=== PATIENT | female | born 1970 | race Caucasian/White ===

== ENCOUNTER 2021-12-09 00:12 | Day surgery (SDC) | payer BC, SELFPAY ==
--- NOTE | 2021-12-02 13:54 | PC.NURSE ---
Report to the Outpatient Waiting Room, entrance under the green pavilion located off [facility], at time 0600 on date 12/09/21. OR Time: 0730. - You and your visitor will be asked a series of questions to screen for COVID 19 for your protection. - Only one visitor is allowed at this time. - The patient visitor is requested to leave or wait in car when not with patient. - A mask is required within the hospital. Patients may have clear liquids (water, carbonated beverages, clear teas, apple juice) until 3 hours prior to surgery with a maximum of 20 ounces. - No food from midnight until time of surgery Take the following medications with a SIP of water the morning of surgery: SERTRALINE Medications to discontinue per physician: N/A Date to take last dose: N/A Please no make-up, nail ugandan, hairspray, perfume, deodorant, or body powder the day of surgery. No jewelry (including any body piercings) or valuables the day of surgery, leave them at home. Please take a shower or bath the night before, or the morning of, surgery with an antibacterial soap. Wear comfortable, loose fitting clothing. - Jewelry must be removed prior to entering the operating room. Rings and piercings that are not removed may be cut off. - The hospital will not accept responsibility for valuables. - Please leave all valuables, including medications, at home the day of surgery. If you are going home after surgery, a licensed team driver must drive you home. - NO public transportation without another adult. - We recommend that an adult stay with you for 24 hours following discharge. - We also recommend that you do not drive, make important decision, drink alcoholic beverages, or take any drugs that were not prescribed by your health care provider for at least 24 hours after your discharge time. Follow any additional instructions given to you from your surgeon. If you or anyone in your household have experienced Covid symptoms in the past week, please notify your surgeon or the nurse liaison at the phone number below for possible testing. Telephone instructions given to PT - SCOTTIE CLAY and asked if any additional questions and then verbalized understanding. Patient advised to call surgeon office or pre surgery nurse liaison [phone] if any additional questions.
--- NOTE | 2021-12-08 10:36 | WPDANESEPPF ---
Anes - Initial Pre Proc Eval Procedure: Operation Date: 12/09/21 07:30 Proposed Procedures p Fifth Metatarsal Head Resection of Right Foot - Joe Callahan JR, MD <Christo Mahan MD - Last Filed: 12/08/21 10:37> Date/Time: 12/08/21 10:36 <Christo Mahan MD - Last Filed: 12/08/21 10:37> Surgeon: Joe Callahan JR, MD <Christo Mahna MD - Last Filed: 12/08/21 10:37> Pre Op Diagnosis: painful tailor's bunion right foot <Christo Mahan MD - Last Filed: 12/08/21 10:37> Patient Data Age: 51 Gender: F Height: 1.73 m Weight: <Christo Mahan MD - Last Filed: 12/08/21 10:37> Allergies Allergy/AdvReac Type Severity Reaction Status Date / Time No Known Allergies Allergy Verified 12/02/21 13:42 <Christo Mahan MD - Last Filed: 12/08/21 10:37> Home Medications Medication Instructions Recorded Confirmed Type clonazepam 0.5 mg tablet 0.5 mg PO HS INSOMNIA 12/02/21 12/02/21 History sertraline 100 mg tablet 1 tablet PO DAILY 12/02/21 12/02/21 History <Christo Mahan MD - Last Filed: 12/08/21 10:37> Patient hx anesthesia problems: none <Patrice Aguiar DO - Last Filed: 12/09/21 07:00> Family hx anesthesia problems: none <Patrice Aguiar DO - Last Filed: 12/09/21 07:00> Results Review: All pre-operative results and documents have been reviewed as part of the pre-operative evaluation. <Christo Mahan MD - Last Filed: 12/08/21 10:37> PMFSH Past Medical History Medical History: Medical History (Updated 12/08/21 @ 10:36 by Christo Mahan MD) Anxiety Arthritis <Christo Mahan MD - Last Filed: 12/08/21 10:37> Social History Social History: Social History Smoking status: Never smoker Alcohol intake: current Drinks per week: 2 Substance use: never Substance use type: does not use Living arrangements: with family Spiritual care concerns: No <Christo Mahan MD - Last Filed: 12/08/21 10:37> Anes - Eval Final PreProcedure Day of Procedure 12/08/21 10:36 <Christo Mahan MD - Last Filed: 12/08/21 10:37> Patient weight: overweight <Christo Mahan MD - Last Filed: 12/08/21 10:37> Heart: regular rate and rhythm <Christo Mahan MD - Last Filed: 12/08/21 10:37> Lungs: clear to auscultation and normal air movement <Christo Mahan MD - Last Filed: 12/08/21 10:37> Airway: Mallampati scale class II <Christo Mahan MD - Last Filed: 12/08/21 10:37> Neurological: alert and oriented <Christo Mahan MD - Last Filed: 12/08/21 10:37> Last oral intake: >/= 8 hours <Christo Mahan MD - Last Filed: 12/08/21 10:37> ASA classification: II <Christo Mahan MD - Last Filed: 12/08/21 10:37> Emergent: no <Christo Mahan MD - Last Filed: 12/08/21 10:37> Anesthetic plan: proceed <Christo Mahan MD - Last Filed: 12/08/21 10:37> Anesthesia type and monitoring: general GIVS <Christo Mahan MD - Last Filed: 12/08/21 10:37> Results Review: All pre-operative results and documents have been reviewed as part of the pre-operative evaluation. <Christo Mahan MD - Last Filed: 12/08/21 10:37> Informed Consent: The patient's anesthetic plan and its attendant risks and benefits were discussed with the patient/family/POA. Questions were solicited and answers provided to the satisfaction of the patient/family/POA. <Christo Mahan MD - Last Filed: 12/08/21 10:37>
--- NOTE | ~2021-12-09 | XR_ITS ---
EXAMINATION: XR surgery orthopedic DATE: 12/09/2021 08:04 INDICATION: Right foot surgery TECHNIQUE: Single dorsal plantar fluoroscopic image of the right forefoot was obtained during procedu re performed by Dr. Callahan. Radiologist was not present for the imaging or procedure. The amount of fluoroscopy time used during this procedure was 0.1 minutes. COMPARISON: None. FINDINGS: Osteotomy with resection of the head of the right fifth metatarsal with expected gas at the resection bed. Alignment is otherwise normal. No fracture. 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 IMPRESSION: 1. Resection of the head of the right fifth metatarsal. See procedure note for further detail. Reviewed, dictated and finalized at location A.
[2021-12-09] MEDS: LACTATED RINGERS 1,000 ML 30 ML IV CONT (07:20)
--- NOTE | 2021-12-09 07:25 | WPDHPUPDATE1 ---
History and Physical Update Update Date/Time: 12/09/21 07:25 History and Physical has been reviewed, including an updated exam of the patient. There are NO changes in the patient's condition. Risks, benefits, and alternatives have been discussed and questions answered. Patient agrees to proceed with procedure.
[2021-12-09 07:28] VITALS: BP 150/73; PULSE 68; RESP 16; TEMP 36.3; O2SAT 98
[2021-12-09] MEDS: ceFAZolin 2 GM/D5W 50 ML 2 GM/50 ML BAG IVPB (07:31)
[2021-12-09] MEDS: BUPIVACAINE HCL 0.5% PF 30 ML VIAL 10 ML INFILTRATE (07:51)
[2021-12-09] MEDS: LIDOCAINE HCL 2% LOCAL INJ 20 ML VIAL 10 ML INFILTRATE (07:52)
[2021-12-09 08:10] VITALS: BP 108/53; PULSE 77; RESP 14; O2SAT 98
--- NOTE | 2021-12-09 08:25 | W.PM.PROC2 ---
Procedure Note - Detailed Date of Procedure 12/09/21 Pre-op Diagnosis Painful tailor's bunion right foot Post-op Diagnosis Same Procedure Performed Fifth metatarsal head resection right foot Surgeon Joe Callahan JR, DPM Indications Painful lateral right forefoot Findings Prominent fifth metatarsal head resection right Description of Procedure Under mild sedation, the patient was brought in to the operating room, placed on the operating table in the supine position. A pneumatic ankle tourniquet was placed about the patient's right ankle. Following monitored anesthesia care, local anesthesia was obtained about the patients ankle utilizing 20 mL of a 1:1 mixture of 2% Lidocaine plain and 0.5% Marcaine plain. The foot was then scrubbed, prepped, and draped in the usual aseptic manner. An Esmarch bandage was then used to exsanguinate the patient's foot and the pneumatic ankle tourniquet was then inflated. Attention was directed to the dorsal lateral aspect of the fifth metatarsal head where a 2 cm incision was made just lateral to the extensor digitorum longus tendon to the fifth digit to the shaft of the fifth metatarsal. The incision was continued deep down through the subcutaneous tissues using sharp and blunt dissection. All bleeders were cauterized as necessary.A full-length periosteal incision was made overlying the fifth metatarsal distally. A McGlamry Elevator was used to free the plantar structures to the fifth metatarsal head. Next, a sagittal bone saw was used to resect the head of the fifth metatarsal proximal at the neck of the 5th metatarsal. The fifth metatarsal was removed from the operative site and placed on the back table and discarded. No abnormalities to the head of the fifth metatarsal. Fluoroscopy was used to make sure that the resected distal fifth metatarsal was adequate. The edges were smoothed out with a bone rasp. Next, the periosteum and capsular structures overlying the 5th metatarsophalangeal joints were reapproximated with 4-0 Vicryl. Next, subcutaneous structures were reapproximated and coapted utilizing 4-0 Vicryl. Next, the skin was reapproximated and coapted utilizing 4-0 Monocryl in running subcuticular suture fashion technique. Upon completion of the procedure, the incision was dressed with Adaptic, 4 x 4's, Kerlix, and Coban. The pneumatic ankle tourniquet was then deflated and a prompt hyperemic response noted to all digits of the foot. A CAM walker boot was then applied. The patient did very well with the procedure and the anesthesia. The patient was transferred to the recovery room with vital signs stable and vascular status intact to all toes of the affected foot. Following a period of postoperative monitoring, the patient will be discharged home on the following written and oral postoperative instructions: 1. Keep the dressing clean, dry, and intact. Use a cast protector bag with showers. 2. The patient should use a CAM boot for ambulation postoperatively. 3. The patient should be on bedrest with bathroom privileges and elevate the affected foot when at rest. 4. The patient to contact Dr. Callahan for all postop care and if any problems arise. 5. Prescriptions were written for Percocet 5/325 dispensed 40 to be taken 1 p.o. q.4 to 6 hours as needed for severe pain. 6. Take one Aspirin 325mg every 24hours for two weeks post operatively. Estimated Blood Loss 1 Pathology None sent Complications No immediate complications Condition Stable Disposition Same day
[2021-12-09 08:30] VITALS: BP 98/57; PULSE 75; RESP 14; O2SAT 98
[2021-12-09 09:00] VITALS: BP 123/77; PULSE 59; RESP 14
[2021-12-09 09:20] VITALS: BP 124/76; PULSE 66; RESP 14
== END 2021-12-09 09:35 | disposition home or self-care (01) ==
PROVIDERS: PCP Nurse Practitioner Family; Visit Provider Podiatrist Foot & Ankle Surgery
PROC: (CPT 28104; principal; 2021-12-09 07:30)
DX: M21.621 Bunionette of right foot (principal); F41.9 Anxiety disorder, unspecified
CPT/HCPCS: 28113; 99199; J0690; J1200; J2250; J2704; J3010; J7120